=== PATIENT | female | born 1965 | race Caucasian/White ===

== ENCOUNTER 2016-08-01 16:30 | Inpatient (IN) | payer OTHER ==
[2016-08-01] MEDS ORDERED: DILAUDID IM ONE (17:45)
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
[2016-08-01] MEDS ORDERED: DILAUDID IV ONE (19:54)
[2016-08-01 20:05] LABS: MANUAL DIFF NEEDED? NO
[2016-08-01 20:10] LABS: BASO% 0.2 % (0.0-0.8); EOS# 0.06 X1000 (0.0-0.7); EOS% 0.4 % (0.0-10.0); HEMATOCRIT 36.4 % (37.0-47.0); HEMOGLOBIN 11.8 g/dL (12.0-16.0); IMM GRAN# 0.07 X1000 (0.0-0.04); IMM GRAN% 0.4 % (0.0-0.5); LYMPH# 1.45 X1000 (1.2-3.4); LYMPH% 8.5 % (20.5-51.1); MCH 31.6 PG (27-31); MCHC 32.4 g/dL (33-37); MCV 97.3 FL (81-99); MONO# 1.01 X1000 (0.11-0.59); MONO% 5.9 % (1.7-9.3); NEUT% 84.6 % (42.2-75.2); PLT 226 X1000 (130-400); RBC 3.74 XMIL (4.2-5.4)
[2016-08-01 20:16] LABS: INR 0.97; PROTIME 10.3 Seconds (9.2-11.7)
[2016-08-01 20:46] LABS: ALBUMIN 4.4 g/dL (3.5-5.0); CALCIUM 8.8 mg/dL (8.8-10.2); TOTAL BILIRUBIN 0.3 mg/dL (0.20-1.00); TOTAL PROTEIN 7.6 g/dL (6.3-8.3)
[2016-08-01 20:57] LABS: URINE MICRO REVIEW NEEDED? NO; URINE SOURCE CATH
[2016-08-01 21:01] LABS: BILIRUBIN URINE NEGATIVE (NEGATIVE); BLOOD URINE NEGATIVE (NEGATIVE); COLOR YELLOW; GLUCOSE URINE NEGATIVE (NEGATIVE); LEUKOCYTES URINE TRACE (NEGATIVE); NITRITE URINE POSITIVE (NEGATIVE); PROTEIN URINE NEGATIVE (NEGATIVE); TURBIDITY URINE CLEAR (CLEAR); UR EPITHELIAL CELLS <10 /HPF (<10); URINE BACTERIA 4+ /HPF; URINE CULTURE NEEDED? YES; URINE RBC <10 /HPF (<10); URINE WBC <10 /HPF (<10); UROBILINOGEN URINE NORMAL (NORMAL)
[2016-08-01] MEDS ORDERED: TYLENOL PO PRN (21:56)
[2016-08-01] MEDS ORDERED: NS 1,000 ML IV SCH (21:56)
[2016-08-01] MEDS: PROTONIX IV SCH (21:56)
[2016-08-01] MEDS ORDERED: ZOFRAN IV PRN (21:56)
[2016-08-01] MEDS ORDERED: ROCEPHIN 1 GM/NS 50 ML IV SCH (21:56)
[2016-08-01] MEDS: SODIUM CHLORIDE 0.9% INJ SCH (22:14)
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
[2016-08-01] MEDS: DILAUDID IV PRN (23:14)
[2016-08-02] MEDS: DILAUDID IV PRN ×5 (02:15→21:19)
--- NOTE | 2016-08-02 05:47 | EKG Report ---
Test Performed on : 08/01/2016 6:48:19 PM Test Reason : pre-surgical Blood Pressure : / mmHG Vent. Rate : 068 BPM Atrial Rate : 068 BPM P-R Int : 162 ms QRS Dur : 102 ms QT Int : 402 ms P-R-T Axes : 048 026 043 degrees QTc Int : 427 ms Normal sinus rhythm. with sinus arrhythmia. Nonspecific T wave abnormality Abnormal ECG No previous ECGs available Unconfirmed Result
[2016-08-02 05:57] LABS: MANUAL DIFF NEEDED? NO
[2016-08-02 06:13] LABS: HEMOGLOBIN A1C 5.3 % (4.8-6.0)
[2016-08-02 06:18] LABS: AGAP 12; BUN 12 mg/dL (8-22); CALCIUM 8.4 mg/dL (8.8-10.2); CHLORIDE 102 mmol/L (98-107); COSMO 279; POTASSIUM 3.8 mmol/L (3.5-5.1); SODIUM 139 mmol/L (136-145); TCO2 25 mmol/L (25-35)
[2016-08-02 06:32] LABS: BASO% 0.3 % (0.0-0.8); EOS# 0.09 X1000 (0.0-0.7); EOS% 1.1 % (0.0-10.0); HEMATOCRIT 30.7 % (37.0-47.0); IMM GRAN# 0.02 X1000 (0.0-0.04); IMM GRAN% 0.3 % (0.0-0.5); LYMPH# 2.44 X1000 (1.2-3.4); LYMPH% 30.7 % (20.5-51.1); MCH 31.8 PG (27-31); MCHC 32.6 g/dL (33-37); MCV 97.8 FL (81-99); MONO# 0.71 X1000 (0.11-0.59); MONO% 8.9 % (1.7-9.3); MPV 10.3 FL (7.4-10.4); NEUT% 58.7 % (42.2-75.2); PLT 192 X1000 (130-400); RBC 3.14 XMIL (4.2-5.4)
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
--- NOTE | 2016-08-02 07:52 | Diag Imaging Result Document ---
PROCEDURE NAME: CHEST-PORTABLE - 08/01/2016 PORTABLE CHEST X-RAY, 08/01/2016: COMPARISON: None. FINDINGS: The lungs are normally expanded and clear. Heart size and mediastinal contours are normal. No pneumothorax or pleural effusion. IMPRESSION: Negative exam.
--- NOTE | 2016-08-02 07:53 | Diag Imaging Result Document ---
PROCEDURE NAME: XRAY PELVIS W/HIP 2-3VW RT - 08/01/2016 PELVIS AND 2 VIEWS OF THE RIGHT HIP: COMPARISON: None. FINDINGS: There is an acute mildly displaced fracture through the greater trochanter of the right hip. This is intertrochanteric and minimally displaced. No dislocations. IMPRESSION: Acute intertrochanteric right hip fracture.
--- NOTE | 2016-08-02 08:00 | Diag Imaging Result Document ---
PROCEDURE NAME: LUMBAR SPINE - 08/01/2016 X-RAY LUMBAR SPINE 6 VIEWS, 08/01/2016: COMPARISON: None. FINDINGS: There are surgical suture lines and clips throughout the lower abdomen and pelvis. There is straightening of the lumbar spine along with dextrocurvature of uncertain significance. Vertebral body heights are preserved. No fractures. There is mild multilevel degenerative osteophyte formation. Sacroiliac joints are clear. IMPRESSION: Nonspecific findings.
[2016-08-02] MEDS ORDERED: KEFZOL 2 GM/D5W 50 ML ONE (11:43)
[2016-08-02] MEDS ORDERED: CLAVE SECONDARY SET 11953 ONE (11:43)
[2016-08-02] MEDS ORDERED: FENTANYL ONE (13:07)
[2016-08-02] MEDS ORDERED: VERSED ONE (13:07)
[2016-08-02] MEDS ORDERED: DIPRIVAN 1% 50 ML ONE (13:08)
[2016-08-02] MEDS ORDERED: LR 1,000 ML ONE (14:04)
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
[2016-08-02] MEDS ORDERED: ZOFRAN IV PRN (14:21)
[2016-08-02] MEDS ORDERED: HALDOL IV PRN (14:21)
[2016-08-02] MEDS ORDERED: MILK OF MAGNESIA PO PRN (14:21)
[2016-08-02] MEDS: TYLENOL PO SCH ×2 (16:00→19:47)
[2016-08-02] MEDS: PERIDEX MT SCH ×3 (16:01→22:07)
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
[2016-08-02] MEDS: OXY IR PO PRN ×3 (16:54→23:10)
[2016-08-02] MEDS: PROTONIX IV SCH ×2 (19:46→22:06)
[2016-08-02] MEDS: KEFZOL 1 GM/D5W 50 ML IV SCH (19:46)
[2016-08-02] MEDS: SODIUM CHLORIDE 0.9% INJ SCH (19:46)
[2016-08-02] MEDS: COLACE PO SCH ×2 (19:47→22:07)
[2016-08-02] MEDS: TENORMIN PO SCH (22:06)
[2016-08-03] MEDS: DILAUDID IV PRN ×2 (00:39→03:25)
[2016-08-03] MEDS ORDERED: NS 1,000 ML ONE (03:21)
[2016-08-03] MEDS: TYLENOL PO SCH ×3 (03:24→20:33)
[2016-08-03] MEDS: KEFZOL 1 GM/D5W 50 ML IV SCH (03:25)
[2016-08-03] MEDS: ZOFRAN IV PRN ×2 (04:06→08:55)
[2016-08-03 05:33] LABS: HEMATOCRIT 29.7 % (37.0-47.0); HEMOGLOBIN 9.7 g/dL (12.0-16.0)
[2016-08-03 06:04] LABS: AGAP 11; BUN 9 mg/dL (8-22); CALCIUM 8.3 mg/dL (8.8-10.2); CHLORIDE 99 mmol/L (98-107); COSMO 274; SODIUM 136 mmol/L (136-145); TCO2 26 mmol/L (25-35)
[2016-08-03] MEDS: LOVENOX SUBQ SCH (06:27)
[2016-08-03] MEDS: OXY IR PO PRN ×4 (06:27→19:12)
--- NOTE | 2016-08-03 07:37 | PROGRESS NOTE ---
DATE: 08/03/2016 SUBJECTIVE: Ms. Jalloh is feeling fairly well in bed this morning. Not complaining of a lot of pain. She did have some vomiting overnight, unfortunately. OBJECTIVE: Right lower extremity exam: Dressing is clean, dry, and intact. She is neurovascularly intact to the right lower extremity with good 2+ DP pulse. Good sensation to light touch to the foot and good dorsiflexion and plantar flexion of the ankle and toes. ASSESSMENT: Status post right trochanteric femoral nail. PLAN: Ms. Jalloh is going to get up with therapy today. She can be weight bear as tolerated on the right lower extremity. senior manager creative services team is going to be looking for placement options for her today.
[2016-08-03] MEDS: PERIDEX MT SCH ×2 (08:56→20:34)
[2016-08-03] MEDS: FERROUS SULFATE PO SCH (08:56)
--- NOTE | 2016-08-03 16:11 | PROGRESS NOTE ---
DATE: 08/03/2016 SUBJECTIVE: Ms. Jalloh is feeling much better. Awake and she is eating. Tolerating physical therapy. OBJECTIVE: Vital signs: Temperature 98.6, pulse 76, respirations 18, blood pressure 145/73. Lungs: Are clear in all lung maier. Cardiovascular: Regular rhythm and rate without murmur or S3. : Good urine output above 2 L. LABS: Hematocrit was 29, hemoglobin 9.7. ASSESSMENT AND PLAN: 1. Status post right intertrochanteric femur fracture. Received right trochanteric femur nail, postop doing well. 2. Urinary tract infection on Rocephin. 3. Leukocytosis has come down, probably secondary to trauma from urinary tract infection. 4. Hypertension. Blood pressure controlled. 5. History of anxiety. 6. Chronic pain syndrome. 7. P.o. intake. She has a pretty good appetite. Review of her orders, she is still getting normal saline at 75 mL an hour. Atenolol 100 mg at bedtime. Iron 325 mg p.o. with breakfast. Docusate 200 mg at bedtime, Lovenox 40 mg subcutaneously q.24 hours, Protonix 40 mg q.24 hours. Pain control appears good.
[2016-08-03] MEDS: NS 1,000 ML IV SCH ×2 (18:19→18:22)
[2016-08-03] MEDS: PROTONIX IV SCH (20:33)
[2016-08-03] MEDS: SODIUM CHLORIDE 0.9% INJ SCH (20:33)
[2016-08-03] MEDS: TENORMIN PO SCH (20:33)
[2016-08-03] MEDS: COLACE PO SCH (20:34)
[2016-08-03] MEDS: MORPHINE IV PRN (20:39)
[2016-08-04] MEDS: MORPHINE IV PRN ×5 (01:17→22:23)
[2016-08-04] MEDS: ZOFRAN IV PRN ×2 (02:23→08:36)
[2016-08-04] MEDS: PROTONIX IV SCH ×2 (03:09→22:36)
[2016-08-04] MEDS: LOVENOX SUBQ SCH (05:13)
[2016-08-04] MEDS: TYLENOL PO SCH ×4 (05:13→22:36)
[2016-08-04] MEDS: OXY IR PO PRN ×3 (05:13→15:40)
[2016-08-04] MEDS: NS 1,000 ML IV SCH ×2 (05:15→07:46)
[2016-08-04 06:03] LABS: HEMATOCRIT 28.4 % (37.0-47.0); HEMOGLOBIN 9.3 g/dL (12.0-16.0)
[2016-08-04] MEDS: FERROUS SULFATE PO SCH (08:22)
[2016-08-04] MEDS: PERIDEX MT SCH ×2 (08:22→22:37)
[2016-08-04] MEDS ORDERED: PHENERGAN IV PRN (12:49)
[2016-08-04] MEDS ORDERED: SODIUM CHLORIDE 0.9% INJ PRN (12:49)
--- NOTE | 2016-08-04 13:52 | PROGRESS NOTE ---
DATE: 08/04/2016 Ms. Jalloh was complaining of nausea all through the night and they had switched her to morphine. Hopefully this will help. The pain is controlled. She is breathing comfortably. Temp 98.7 degrees, pulse 61, respirations 16, blood pressure 158/84.Lungs: Clear in all lung maier. Cardiovascular: Regular rhythm and rate without murmur or S3. Good urine output over 3 L. LAB: Reviewed hematocrit 28, hemoglobin 9.3. ASSESSMENT AND PLAN: 1. Status post right intertrochanteric femur fracture. Received right trochanteric femoral nail. Postop doing well. 2. Urinary tract infection on Rocephin. 3. Leukocytosis which white blood cell count has come down. 4. Hypertension. Blood pressure well controlled. 5. History of anxiety. 6. Chronic pain syndrome. P.o. intake is improved. REVIEW OF PRESENT ORDERS: We will continue present orders. They have changed, I think, her to morphine for pain control. Fluids going at 75 mL an hour I believe. We will continue those and she is on oxycodone IR by mouth. Hopefully nausea will dissipate.
[2016-08-04] MEDS: SODIUM CHLORIDE 0.9% INJ SCH (22:36)
[2016-08-04] MEDS: COLACE PO SCH (22:36)
[2016-08-04] MEDS: TENORMIN PO SCH (22:36)
[2016-08-05] MEDS: OXY IR PO PRN ×3 (00:06→13:52)
[2016-08-05] MEDS: MORPHINE IV PRN ×2 (03:39→06:22)
[2016-08-05] MEDS: TYLENOL PO SCH ×2 (06:22→13:52)
[2016-08-05] MEDS: LOVENOX SUBQ SCH (06:22)
[2016-08-05] MEDS: NS 1,000 ML IV SCH ×2 (06:22→13:48)
[2016-08-05 06:30] LABS: HEMATOCRIT 27.7 % (37.0-47.0); HEMOGLOBIN 8.9 g/dL (12.0-16.0)
--- NOTE | 2016-08-05 08:40 | PROGRESS NOTE ---
DATE: 08/05/2016 SUBJECTIVE: Ms. Jalloh is a few days out from this right trochanteric femoral nail for intertrochanteric fracture. She is resting in bed well. She has been working with therapy. OBJECTIVE: On right lower extremity exam, dressing has been changed, just a little bit of gauze over the incisions and there is no drainage there. Good sensation to light touch to the foot and good dorsiflexion and plantar flexion of the foot. ASSESSMENT: Status post right trochanteric femoral nail. PLAN: Ms. Jalloh seems to be doing fairly well. She can continue to be weight bear as tolerated right lower extremity and, when she is discharged, I would like to see her in clinic in about 2-3 weeks.
[2016-08-05] MEDS: FERROUS SULFATE PO SCH (09:30)
[2016-08-05] MEDS: PERIDEX MT SCH (09:30)
[2016-08-05 11:52] VITALS: BP 164/81
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
== END 2016-08-05 14:52 | disposition home health service (06) | DRG 481 ==
LOC: ED 16:30 → 4N 22:21
PROVIDERS: ATTEND Emergency Medicine
PROC: 0QS636Z Reposition Right Upper Femur with Intramedullary Internal Fixation Device, Percutaneous Approach (ICD-10-PCS; principal; 2016-08-02 11:49)
DX: S72.141A Displaced intertrochanteric fracture of right femur, initial encounter for closed fracture (principal); N39.0 Urinary tract infection, site not specified; E11.40 Type 2 diabetes mellitus with diabetic neuropathy, unspecified; I10 Essential (primary) hypertension; Y04.0XXA Assault by unarmed brawl or fight, initial encounter; S61.411A Laceration without foreign body of right hand, initial encounter; D49.89 Neoplasm of unspecified behavior of other specified sites; M54.9 Dorsalgia, unspecified; G89.4 Chronic pain syndrome; K59.03 Drug induced constipation; R11.2 Nausea with vomiting, unspecified; T40.2X5A Adverse effect of other opioids, initial encounter; K21.9 Gastro-esophageal reflux disease without esophagitis; F41.9 Anxiety disorder, unspecified; Z85.41 Personal history of malignant neoplasm of cervix uteri; Z90.49 Acquired absence of other specified parts of digestive tract; Z90.5 Acquired absence of kidney; Z82.49 Family history of ischemic heart disease and other diseases of the circulatory system; Z83.3 Family history of diabetes mellitus; Z80.3 Family history of malignant neoplasm of breast; Z92.3 Personal history of irradiation; Z79.899 Other long term (current) drug therapy
CPT/HCPCS: 51702; 71010; 72110; 76000; 80048; 80053; 81001; 83036; 85014; 85018; 85025; 85610; 85730; 86850; 86870; 86900; 86901; 86922; 87077; 87088; 87186; 93005; 94761; 94799; 96372; C9113; J0690; J0696; J1170; J1650; J2250; J2270; J2405; J2550; J3010; J7030; J7120; 97001-GP; 97110-GP; 97116-GP; 97530-GP; S0164